=== PATIENT | female | born 1980 | race Caucasian/White ===

== ENCOUNTER → 2016-10-23 09:36 | Outpatient (CLI) | payer OTHER | END | disposition home or self-care (01) | LOC: D.LAB 09:36 | PROVIDERS: Student in an Organized Health Care Education/Training Program | DX: R19.7 Diarrhea, unspecified (principal) ==

== ENCOUNTER → 2016-10-29 13:26 | Outpatient (CLI) | payer OTHER ==
[2016-11-05 03:10] LABS: OVA + PARASITE EXAM Final report (())
[2016-11-06 03:10] LABS: OVA + PARASITE EXAM Final report (())
== END | disposition home or self-care (01) ==
LOC: D.LABREF 13:26
PROVIDERS: Student in an Organized Health Care Education/Training Program
DX: A07.2 Cryptosporidiosis (principal)

== ENCOUNTER → 2018-02-11 08:59 | Outpatient (CLI) | payer OTHER | END | disposition home or self-care (01) | LOC: D.MRI 08:59 | DX: M54.2 Cervicalgia (principal) ==

== ENCOUNTER → 2018-08-09 13:35 | Outpatient (CLI) | payer OTHER | END | disposition home or self-care (01) | LOC: D.CT 08:30 | PROVIDERS: ATTEND Family Medicine | DX: J32.9 Chronic sinusitis, unspecified (principal) ==

== ENCOUNTER → 2020-07-25 15:07 | Outpatient (CLI) | payer OTHER | END | disposition home or self-care (01) | LOC: D.MRI 15:00 | DX: M26.632 Articular disc disorder of left temporomandibular joint (principal) ==